=== PATIENT | female | born 1955 ===

== ENCOUNTER 2021-09-12 11:45 | Inpatient (IN) | payer OTHER ==
[~2021-09-12] VITALS: Ht 154.9 cm; Wt 56.7 kg
[2021-09-12] MEDS ORDERED: ZESTRIL20 MG PO (14:57)
[2021-09-12] MEDS ORDERED: METFORMIN HCL850 MG (14:57)
[2021-09-12] MEDS ORDERED: ACID REDUCER20 M1 PO (14:58)
[2021-09-15] MEDS ORDERED: GABAPENTIN600 MG (13:17)
[2021-09-15] MEDS ORDERED: METFORMIN HCL850 M1 (13:17)
[2021-09-15] MEDS ORDERED: OMEPRAZOLE40 MG (13:19)
[2021-09-16] MEDS ORDERED: CLONAZEPAM0.5 MG (08:37)
[2021-09-16] MEDS ORDERED: TOPIRAMATE25 MG (08:37)
[2021-09-16] MEDS ORDERED: MONTELUKAST SOD10 MG (08:37)
[2021-09-16] MEDS ORDERED: SIMVASTATIN20 MG (08:37)
[2021-09-16] MEDS ORDERED: TRULICITY0.75 MG/0. (08:37)
[2021-09-19] MEDS ORDERED: ULTRACET PO (14:28)
== END 2021-09-19 16:23 | disposition home or self-care (01) | DRG 330 ==
LOC: SURH 09-15 09:26 → O/R 09-15 09:26 → SURH 09-15 10:45
PROVIDERS: ADMIT Surgery; ATTEND Surgery
PROC: 0DBP4ZZ Excision of Rectum, Percutaneous Endoscopic Approach (ICD-10-PCS; 2021-09-15)
PROC: 0DN84ZZ Release Small Intestine, Percutaneous Endoscopic Approach (ICD-10-PCS; 2021-09-15)
PROC: 0DTN4ZZ Resection of Sigmoid Colon, Percutaneous Endoscopic Approach (ICD-10-PCS; principal; 2021-09-15 10:45)
PROC: 30233N1 Transfusion of Nonautologous Red Blood Cells into Peripheral Vein, Percutaneous Approach (ICD-10-PCS; 2021-09-18)
DX: K57.32 Diverticulitis of large intestine without perforation or abscess without bleeding (principal); D62 Acute posthemorrhagic anemia; N73.6 Female pelvic peritoneal adhesions (postinfective); R10.32 Left lower quadrant pain; R19.4 Change in bowel habit; R10.13 Epigastric pain; Z20.822 Contact with and (suspected) exposure to COVID-19; E11.9 Type 2 diabetes mellitus without complications; I11.9 Hypertensive heart disease without heart failure